=== PATIENT | female | born 1990 | race African-American/Black ===

== ENCOUNTER 2016-06-22 09:12 | Emergency (ER) | payer OTHER ==
[~2016-06-22] VITALS: Ht 170.2 cm; Wt 62.1 kg
[~2016-06-22 09:12] MED LIST: AUGMENTIN 875 M1 TAB PO; DOXYCYCLINE MO100 MG PO; TRI-PREVIFEM 351 TAB PO; ZOFRAN 4 MG TABL4 MG PO
[2016-06-22 09:18] VITALS: BP 128/80
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
[2016-06-22] MEDS ORDERED: BACITRACIN28.4 GM TOP (09:59)
== END 2016-06-22 10:13 ==
LOC: ERH 09:12
DX: T23.222A Burn of second degree of single left finger (nail) except thumb, initial encounter (principal); Y27.1XXA Contact with hot tap water, undetermined intent, initial encounter